=== PATIENT | female | born 1950 | race Caucasian/White ===

== ENCOUNTER 2017-05-13 14:57 | Emergency (ER) | payer OTHER, MEDICARE ==
[2017-05-13 15:14] VITALS: BP 166/102; PULSE 66; RESP 18; TEMP 98.1; O2SAT 98
--- NOTE | 2017-05-13 16:41 | EDPHY ---
H & P Smoking Status: Never smoked Time Seen by Provider: 05/13/17 15:08 HPI/ROS: CHIEF COMPLAINT: left index finger puncture wound HISTORY OF PRESENT ILLNESS: 66-year-old female presents with an injury to her left index finger. Patient was using a sewing machine when the needle puncture and broke in her left index finger. Patient pulled the needle out and noticed part of it was stuck on her finger which she pulled out with tweezers. Tetanus is up-to-date. (Neeru Patel) Physical Exam: GEN: Awake, alert, oriented, no acute distress RESP: nl resp effort MSK: Full active range of motion of left index finger SKIN: 5 mm [place] shaped flap laceration to distal palmar aspect of left index finger (Neeru Patel) Constitutional: Initial Vital Signs Temperature (C) 36.7 C 05/13/17 15:00 Heart Rate 66 05/13/17 15:00 Respiratory Rate 18 05/13/17 15:00 Blood Pressure 166/102 H 05/13/17 15:00 O2 Sat (%) 98 05/13/17 15:00 O2 Delivery Mode Room Air Allergies/Adverse Reactions: milk Allergy (Verified 05/13/17 15:09) Sulfa (Sulfonamide Antibiotics) Allergy (Verified 05/13/17 15:09) wheat Allergy (Verified 05/13/17 15:09) Home Medications: Medication Instructions Recorded Glucosam/Chondr/Collagn/Hyalur 1 each PO DAILY 03/06/15 [Glucosamine & Chondroitin Cap] Herbals/Supplements -Info Only 1 ea PO DAILY 03/06/15 Multivitamins [Tab-A-Kacey] 1 each PO DAILY 03/06/15 [place]-3 Fatty Acids/Fish Oil 1 each PO DAILY 03/06/15 [[place] 3 1,000 mg Softgel] Thyroid [[place] Thyroid] 60 mg PO DAILY10 03/06/15 Hydrocodone/APAP 5/325 [[place] 1 - 2 tab PO Q4 PRN #90 tab 03/27/15 5/325 (*)] traMADol [Ultram 50 mg (*)] 100 mg PO BID #60 tab 03/27/15 Cephalexin [Keflex] 500 mg PO TID 5 Days cap 05/13/17 MDM/Departure - MDM Imaging: I viewed and interpreted images myself - MDM Imaging Results: Imaging Impressions Finger X-Ray 05/13/17 15:16 Impression: Small metallic fragment projects over the superficial soft tissues along the volar aspect of the index finger near the level of the distal tuft. Procedures: Left index finger digitally blocked with 1% lidocaine without epinephrine ( Neeru Patel) ED Course/Re-evaluation: I have explored the wound looking for the piece of the sewing needle and was unable to find it. My supervising physician Dr. Shah will attempt to remove this. (Neeru Patel) I have attempted to remove the foreign body. Is visualized on the C-arm but I am unable located on expiration. The wound was left open to heal by secondary intention which I think allow the foreign body to work its way out. It is metallic and should not be a nidus of infection. She will be discharged with follow-up as an outpatient. (Sean Shah) - Depart Disposition: Home, Routine, Self-Care Clinical Impression: Foreign body of left index finger Condition: Good Instructions: Soft Tissue Foreign Body (ED) Additional Instructions: Warm soaks to your finger three times per day for 5 minutes. Follow up with the hand doctor at first available appointment for re-evaluation. Take antibiotics as prescribed. 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
== END 2017-05-13 17:46 | disposition home or self-care (01) ==
PROC: 3E0T3CZ (ICD-10-PCS; principal; 2017-05-13)
DX: S60.451A Superficial foreign body of left index finger, initial encounter (principal); W45.8XXA Other foreign body or object entering through skin, initial encounter; Y99.8 Other external cause status; Y93.D2 Activity, sewing

== ENCOUNTER → 2017-07-30 | Outpatient (CLI) | payer OTHER, MEDICARE | LOC: FIMAGING 11:55 | PROVIDERS: ATTEND Family Medicine | DX: Z12.31 Encounter for screening mammogram for malignant neoplasm of breast (principal); N95.0 Postmenopausal bleeding; D25.9 Leiomyoma of uterus, unspecified | CPT/HCPCS: G0202 ==